=== PATIENT | male | born 1970 | race Caucasian/White ===

== ENCOUNTER 2020-05-05 12:57 | Emergency (ER) | payer OTHER, SELFPAY ==
[2020-05-05 13:04] VITALS: BP 147/87; PULSE 91; RESP 16; TEMP 36.6; O2SAT 100
[2020-05-05 13:10] VITALS: BP 147/87; PULSE 91; RESP 16; TEMP 36.6; O2SAT 100
--- NOTE | 2020-05-05 13:25 | ED.GENADULT ---
HPI - General Adult General Chief complaint: Wound/Laceration Stated complaint: lac on left finger Time Seen by Provider: 05/05/20 13:25 Source: patient and RN notes reviewed Mode of arrival: ambulatory Limitations: no limitations History of Present Illness HPI narrative: 49-year-old male present with complaints of laceration to 2nd (index) finger on left hand, caused by a pocket knife prior to arrival. Gamal says he was cutting down lights that had ties connected and sliced finger approximately at 12:45. Cleaned area and applied pressure. Denies focal weakness or altered sensation. Denies pain, numbness or tingling, or loss of mobility. No foreign body sensation. RIGHT HAND is dominant hand. Tetanus NOT up to date, will update today. The patient reports he have not been diagnosed with COVID-19. The patient reports he is not waiting for the results of a COVID-19 lab test. The patient reports he do not have fever, chills, weakness, or fatigue. The patient reports he do not have a new or worsening cough or shortness of breath. Denies chest pain. The patient reports he do not have any rhinorrhea, congestion, loss of taste, sore throat, nausea, vomiting, abdominal pain, and diarrhea. Tolerating po intake well. Denies recent traveling. Denies concerns for COVID-19 or exposures been home with limited outdoor exposure except for essential household needs, work, and return home. At this time, patient is not suspected of having COVID-19. Some parts of this dictation were generated by voice recognition software and may contain typographical and/or grammatical inaccuracies Related Data Home Medications Medication Instructions Recorded Confirmed insulin glargine [Lantus U-100 40 unit SUBCUT DAILY 05/05/20 05/05/20 Insulin] Allergies Allergy/AdvReac Type Severity Reaction Status Date / Time Sulfa (Sulfonamide Allergy Other Verified 05/05/20 13:08 Antibiotics) Review of Systems Review of Systems: Narrative: CONSTITUTIONAL: Denies fever, chills, sweats. EYES: Denies visual changes, redness, discharge. ENT: Denies rhinorrhea, congestion, sore throat, otalgia. CARDIOVASCULAR: Denies chest pain, palpitations, edema. RESPIRATORY: Denies dyspnea, wheezing, cough. GASTROINTESTINAL: Denies abdominal pain, nausea, vomiting, or diarrhea. SKIN: Denies rash or itching. Complains of laceration to 2nd (index) finger on left hand. MUSCULOSKELETAL: Denies acute back pain, joint pain, or myalgia. NEUROLOGIC: Denies numbness or focal weakness. PSYCHIATRIC: Denies anxiety or depression. All other systems reviewed & are unremarkable except as noted in HPI and below. [facility] Past Medical History Medical History (Updated 05/05/20 @ 14:32 by JALYN Neal) Tibia and fibula open fracture, right surgical repaired Type 1 diabetes Surgical History Surgical History (Updated 05/05/20 @ 14:33 by JALYN Neal) History of arthroscopic surgery of shoulder bilateral History of eye surgery ruptured LT orbital History of knee surgery RT meniscus Family History Family History (Updated 05/05/20 @ 14:34 by JALYN Neal) Father Alive and well Mother Diabetes mellitus Heart disease Social History Social History (Updated 05/05/20 @ 14:34 by JALYN Neal) Smoking status: Never smoker Tobacco type: cigarettes Second hand tobacco smoke exposure: No Alcohol intake: current Substance use: never Living arrangements: with family Occupation/Education: occupation Gender identity (if verbalized by the patient): Male Sexual Orientation (if Verbalized by the Patient): Straight or Heterosexual Exam Narrative: Exam Narrative: GENERAL: This is a well-nourished, well-developed patient, in no apparent distress. HEAD: normocephalic, atraumatic. CARDIOVASCULAR: Regular rate and rhythm without murmurs, gallops, or rubs. RESPIRATORY: Clear to auscultation. B
[2020-05-05] MEDS: TETANUS,DIPHTHERIA,AC PERTUSSIS ADULT (0.5 ML) BOOSTRIX IM (14:15)
== END 2020-05-05 14:30 | disposition home or self-care (01) ==
PROVIDERS: Emergency Provider Nurse Practitioner Family; PCP Registered Nurse
DX: S61.211A Laceration without foreign body of left index finger without damage to nail, initial encounter (principal); W26.0XXA Contact with knife, initial encounter; Z23 Encounter for immunization; E10.9 Type 1 diabetes mellitus without complications
CPT/HCPCS: 12001; 90471; 90715; 99213; G0463

== ENCOUNTER 2021-03-19 08:21 | Emergency (ER) | payer OTHER, SELFPAY ==
[2021-03-19 08:26] VITALS: BP 152/83; PULSE 75; RESP 20; TEMP 36.4; O2SAT 98
--- NOTE | 2021-03-19 08:53 | ED_ITS ---
HPI - Eye Problem General Chief complaint: Eye Problems Stated complaint: left eye swollen Time Seen by Provider: 03/19/21 08:53 Source: patient, RN notes reviewed and old records reviewed Mode of arrival: ambulatory Limitations: no limitations Related Data Home Medications Medication Instructions Recorded Confirmed insulin glargine [Lantus U-100 40 unit SUBCUT DAILY 05/05/20 05/05/20 Insulin] Allergies Allergy/AdvReac Type Severity Reaction Status Date / Time Sulfa (Sulfonamide Allergy Other Verified 05/05/20 13:08 Antibiotics) [facility] Past Medical History Medical History (Updated 03/19/21 @ 09:06 by Lian Alcantara NP) Tibia and fibula open fracture, right surgical repaired Type 1 diabetes Surgical History Surgical History (Updated 05/05/20 @ 14:33 by JALYN Neal) History of arthroscopic surgery of shoulder bilateral History of eye surgery ruptured LT orbital History of knee surgery RT meniscus Family History Family History (Updated 05/05/20 @ 14:34 by JALYN Neal) Father Alive and well Mother Diabetes mellitus Heart disease Social History Social History (Updated 05/05/20 @ 14:34 by JALYN Neal) Smoking status: Never smoker Tobacco type: cigarettes Second hand tobacco smoke exposure: No Alcohol intake: current Substance use: never Gender identity (if verbalized by the patient): Male Sexual Orientation (if Verbalized by the Patient): Straight or Heterosexual Course Vital Signs Vital signs: Vital Signs Temperature 36.4 C L 03/19/21 08:26 Pulse Rate 75 03/19/21 08:26 Respiratory Rate 20 03/19/21 08:26 Blood Pressure 152/83 H 03/19/21 08:26 Pulse Oximetry 98 03/19/21 08:26 Temperature 36.4 C L 03/19/21 08:26 Pulse Rate 75 03/19/21 08:26 Respiratory Rate 20 03/19/21 08:26 Blood Pressure 152/83 H 03/19/21 08:26 Pulse Oximetry 98 03/19/21 08:26 Discharge Plan Discharge Clinical Impression: Internal hordeolum of left eye Patient Disposition: Home, Self-Care Condition: Stable Instructions: Antibiotic Form Additional Instructions: Cold compresses to the eyes for comfort May need warm compresses to remove debris in the morning When cleaning the eyes used a washcloth in one direction then change washcloths or use a cotton ball in one direction and then his cotton balls Eyedrops as directed--may be more soothing if left in the refrigerator Do not share medicine--do not touch the eye with the medicine Tylenol or ibuprofen for pain Avoid screen time--television, computer, tablet or phone. Also no reading or driving Follow-up with PCP or [facility] as directed Prescriptions: No Action Lantus U-100 Insulin 100 unit/mL Solution 40 unit SUBCUT DAILY RF: 0 cephalexin 500 mg capsule 500 mg PO BID 5 Days Qty: 10 RF: 0 Follow-up/Referrals: Juana,AVA Dee [Primary Care Provider] -
--- NOTE | 2021-03-19 09:09 | ED.EYEPROB ---
HPI - Eye Problem General Chief complaint: Eye Problems Stated complaint: left eye swollen Time Seen by Provider: 03/19/21 08:53 Source: patient, RN notes reviewed and old records reviewed Mode of arrival: ambulatory Limitations: no limitations History of Present Illness HPI Narrative: 50-year-old male presents to [facility] with complaints of left upper eye lid irritation for 2 days with blistery lesion to the left inner lower eyelid for one week duration. Patient states he awoke this morning with his left upper eyelid swollen and with some redness.Patient reports that he has applied warm compresses to his left eye and he has taken Tylenol for discomfort. He denies any sharp pain to his left eye or any change in his vision, some increase tearing bur no purulent drainage noted from his left eye. Related Data Home Medications Medication Instructions Recorded Confirmed insulin glargine [Lantus U-100 40 unit SUBCUT HS 05/05/20 03/19/21 Insulin] Allergies Allergy/AdvReac Type Severity Reaction Status Date / Time Sulfa (Sulfonamide Allergy Other Verified 05/05/20 13:08 Antibiotics) Review of Systems Review of Systems: CONSTITUTIONAL: Denies fever, chills, or sweats. EYES: Denies visual changes, positive for redness and swelling to left upper eyelid and blistery lesion to inside of left lower eyelid no acute pain, no discharge from left eye ENT: Denies rhinorrhea, congestion, sore throat, or otalgia. CARDIOVASCULAR: Denies chest pain, palpitations, or edema. RESPIRATORY: Denies cough or dyspnea. GASTROINTESTINAL: Denies abdominal pain, nausea, vomiting, or diarrhea. GENITOURINARY: Denies dysuria or hematuria. SKIN: Denies rash or itching. MUSCULOSKELETAL: Denies back pain, joint pain, or myalgia. NEUROLOGIC: Denies headache, numbness, or weakness. PSYCHIATRIC: Denies anxiety or depression. All systems reviewed & are unremarkable except as noted in HPI and below PMFSH Past Medical History Medical History (Updated 03/20/21 @ 00:00 by Rohan Dagabi) Tibia and fibula open fracture, right surgical repaired Type 1 diabetes Surgical History Surgical History (Updated 05/05/20 @ 14:33 by JALYN Neal) History of arthroscopic surgery of shoulder bilateral History of eye surgery ruptured LT orbital History of knee surgery RT meniscus Family History Family History (Updated 05/05/20 @ 14:34 by JALYN Neal) Father Alive and well Mother Diabetes mellitus Heart disease Social History Social History (Updated 05/05/20 @ 14:34 by JALYN Neal) Smoking status: Never smoker Tobacco type: cigarettes Second hand tobacco smoke exposure: No Alcohol intake: current Substance use: never Gender identity (if verbalized by the patient): Male Sexual Orientation (if Verbalized by the Patient): Straight or Heterosexual Exam Narrative: GENERAL: Well-appearing, well-nourished, and in no acute distress. HEAD: Normocephalic, atraumatic. EYES: PERRLA and EOMI. left upper eyelid swollen starting 2 days with blistery lesion noted to lower inner eyelid for one week Increased watering from the left eye, denies acute sharp pain or itching. ENT: Nares clear, no rhinorrhea or epistaxis. Mucous membranes moist. NECK: Supple. no lymphadenopathy CHEST: Clear to auscultation. No respiratory distress.SAO2 98% on room air HEART: Regular rate and rhythm. No murmur heard. Normal peripheral pulses. ABDOMEN: Soft, nontender, nondistended, normal active bowel sounds. EXTREMITIES: Normal range of motion. No edema. SKIN: Warm, dry, no rash. NEURO: No focal deficits. Alert and oriented x3. Course Vital Signs Vital signs: Vital Signs Temperature 36.4 C L 03/19/21 08:26 Pulse Rate 75 03/19/21 08:26 Respiratory Rate 20 03/19/21 08:26 Blood Pressure 152/83 H 03/19/21 08:26 Pulse Oximetry 98 03/19/21 08:26 Temperature 36.4 C L 03/19/21 08:26 Pulse Rate
== END 2021-03-19 09:47 | disposition home or self-care (01) ==
PROVIDERS: Emergency Provider Registered Nurse; PCP Registered Nurse
DX: H00.025 Hordeolum internum left lower eyelid (principal); E10.9 Type 1 diabetes mellitus without complications
CPT/HCPCS: 99213; G0463